=== PATIENT | male | born 1930 | race Caucasian/White ===

== ENCOUNTER 2020-08-09 14:55 | Emergency (ER) | payer MEDICARE, OTHER ==
[2020-08-09 15:36] LABS: HEMOGLOBIN 15.9 gm/dl (14.0-17.5); RED BLOOD COUNT 5.27 M/UL (4.20-5.50); WHITE BLOOD COUNT 6.3 K/UL (4.5-11.0)
== END 2020-08-09 19:10 | disposition home or self-care (01) ==
LOC: EDBD 14:55 → ER1 14:55
PROVIDERS: Emergency Medicine
DX: H61.23 Impacted cerumen, bilateral (principal); Z20.822 Contact with and (suspected) exposure to COVID-19; I48.91 Unspecified atrial fibrillation; R94.31 Abnormal electrocardiogram [ECG] [EKG]
CPT/HCPCS: 0240U; 69209; 70450; 71045; 80053; 85025; 93005; 99284

== ENCOUNTER 2021-01-04 09:30 | Emergency (ER) | payer MEDICARE, OTHER | END 2021-01-04 11:40 | disposition home or self-care (01) | LOC: ER1 09:30 | DX: S70.11XA Contusion of right thigh, initial encounter (principal); I10 Essential (primary) hypertension; W19.XXXA Unspecified fall, initial encounter | CPT/HCPCS: 73502; 73552; 99283 ==